=== PATIENT | male | born 1985 | race Caucasian/White ===

== ENCOUNTER 2020-08-02 09:52 | Inpatient (IN) | payer MEDICARE, MEDICAID ==
[~2020-08-02] VITALS: Ht 175.3 cm; Wt 172.1 kg
[~2020-08-02 09:52] MED LIST: AMOXICILLIN; PRILOSEC; PROTONIX
[2020-08-02] MEDS ORDERED: DILTIAZEM HCL 5MG/ML 5ML VIAL IV ONE (10:45)
[2020-08-02] MEDS ORDERED: FUROSEMIDE 40MG/4ML VIAL IVP ONE (11:00)
[2020-08-02] MEDS ORDERED: METOPROLOL TARTRATE 5MG/5ML VIAL IV ONE (11:15)
[2020-08-02 11:16] LABS: EOSINOPHILS % 1.1 % (0.0-5.0); HEMATOCRIT. 51.8 % (42.0-52.0); HEMOGLOBIN. 16.8 g/dL (14.0-18.0); LYMPHOCYTES % 17.6 % (20.0-50.0); MEAN CORPUSCULAR HEMOGLOBIN 27.5 pg (28.0-32.0); MEAN CORPUSCULAR VOLUME 84.5 fL (80.0-94.0); MEAN PLATELET VOLUME 8.1 fl (7.4-10.4); MONOCYTES % 12.3 % (2.0-8.0); PLATELET 169 x1000/uL (130-400); RED BLOOD CELL COUNT 6.13 mill/uL (4.7-6.1); RED CELL DISTRIBUTION WIDTH 17.4 % (11.6-14.6)
[2020-08-02 11:23] LABS: CHLORIDE 99 mEq/L (98-107)
[2020-08-02 11:24] LABS: INR 1.2; PROTHROMBIN TIME 12.5 sec (9.6-11.0)
[2020-08-02] MEDS ORDERED: GUAIFENESIN 200MG/10ML SUGAR FREE UDC PO PRN (12:30)
[2020-08-02] MEDS ORDERED: HYDROCODONE/ACETAMINOPHEN 5/325MG TABLET PO PRN (12:30)
[2020-08-02] MEDS ORDERED: DOCUSATE SODIUM 100MG CAPSULE PO PRN (12:30)
[2020-08-02] MEDS ORDERED: MORPHINE SULFATE 2 MG/ML CPJ (NOT FOR IM USE) IV PRN (12:30)
[2020-08-02] MEDS ORDERED: IPRATROPIUM/ALBUTEROL 0.5-3(2.5)MG/3ML NEB HHN PRN (12:30)
[2020-08-02] MEDS ORDERED: ONDANSETRON HCL 4MG/2ML INJ IV PRN (12:30)
[2020-08-02] MEDS ORDERED: MAGNESIUM/ALUMINUM HYDROXIDE/SIMETHICONE 30ML UDC PO PRN (12:30)
[2020-08-02] MEDS ORDERED: CLONIDINE 0.1MG TABLET PO PRN (12:30)
[2020-08-02] MEDS ORDERED: ACETAMINOPHEN 325MG TABLET PO PRN (12:30)
[2020-08-02] MEDS ORDERED: DIPHENHYDRAMINE 50MG/ML VIAL IV PRN (12:30)
[2020-08-02] MEDS ORDERED: LORAZEPAM 0.5MG TABLET PO PRN (12:30)
[2020-08-02 12:49] LABS: BG BASE EXCESS 3.8 mmol/L (-2.0-2.0); BG CARBOXYHEMOGLOBIN 0.8 % (0.5-1.5); BG DEOXYHEMOGLOBIN 4.5 % (0.0-5.0); BG FRACTION INSPIRED OXYGEN 36; BG HCO3 ACT 31.9 mmol/L (22.0-26.0); BG METHEMOGLOBIN 0.4 % (0.0-1.5); BG OXYGEN SATURATION 95.4 % (92.0-98.5); BG OXYHEMOGLOBIN 94.3 % (94.0-97.0); BG PCO2 60.2 mmHg (35.0-45.0); BG PH 7.342 (7.350-7.450); BG PO2 83.4 mmHg (75.0-100.0); BG SAMPLE SITE RIGHT RADIAL; BG TOTAL HEMOGLOBIN 18.3 g/dL (12.0-18.0); BG VENT MODE NASAL CANNULA
[2020-08-02 14:09] LABS: PHOSPHORUS 4.6 mg/dL (2.5-4.9)
[2020-08-02 14:31] VITALS: BP 98/54
[2020-08-02 15:27] VITALS: BP 98/54
[2020-08-02 15:36] VITALS: BP 107/67
[2020-08-02] MEDS ORDERED: CARV6.2548 PO (17:21)
[2020-08-02] MEDS ORDERED: FURO40TA5 PO (17:21)
[2020-08-02] MEDS ORDERED: DIGO250T2 PO (17:21)
[2020-08-02] MEDS ORDERED: SPIR50TA5 PO (17:21)
[2020-08-02] MEDS ORDERED: ALLO100T PO (17:21)
[2020-08-02] MEDS ORDERED: METO-396 PO (17:21)
[2020-08-02] MEDS ORDERED: APIX5TAB PO (17:21)
[2020-08-02] MEDS ORDERED: AMIODARONE (17:21)
[2020-08-02] MEDS ORDERED: MIDO5TAB4 PO (17:21)
[2020-08-02] MEDS ORDERED: SILD50TA52 (17:21)
[2020-08-02 18:01] VITALS: BP 93/61
[2020-08-02] MEDS: FUROSEMIDE 40MG/4ML VIAL IVP SCH (18:18)
[2020-08-02] MEDS: APIXABAN 5 MG TABLET PO SCH (18:18)
[2020-08-02 20:00] VITALS: BP 134/71
[2020-08-02] MEDS: METOPROLOL TARTRATE 25MG TABLET PO SCH (21:18)
[2020-08-02 22:14] VITALS: BP 128/49
[2020-08-03] VITALS (11 sets, daily range): BP systolic 105–145; BP diastolic 60–93
[2020-08-03] MEDS: FUROSEMIDE 40MG/4ML VIAL IVP SCH ×2 (06:24→17:53)
[2020-08-03] MEDS: METOPROLOL TARTRATE 25MG TABLET PO SCH ×2 (08:22→21:38)
[2020-08-03] MEDS: APIXABAN 5 MG TABLET PO SCH ×2 (08:22→17:52)
[2020-08-03] MEDS ORDERED: DIGOXIN 500MCG/2ML AMP IV SCH (09:45)
[2020-08-03 11:11] LABS: BASOPHILS % 0.7 % (0.0-2.0); EOSINOPHILS % 0.3 % (0.0-5.0); HEMATOCRIT. 51.6 % (42.0-52.0); HEMOGLOBIN. 16.3 g/dL (14.0-18.0); LYMPHOCYTES % 14.6 % (20.0-50.0); MEAN CORPUSCULAR HEMOGLOBIN 26.8 pg (28.0-32.0); MEAN CORPUSCULAR VOLUME 84.8 fL (80.0-94.0); MEAN PLATELET VOLUME 8.3 fl (7.4-10.4); MONOCYTES % 11.5 % (2.0-8.0); NEUTROPHILS % 72.9 % (40.0-76.0); PLATELET 188 x1000/uL (130-400); RED BLOOD CELL COUNT 6.08 mill/uL (4.7-6.1); RED CELL DISTRIBUTION WIDTH 17.7 % (11.6-14.6)
[2020-08-03 11:21] LABS: CHLORIDE 98 mEq/L (98-107)
[2020-08-03 11:28] LABS: LDL CHOLESTEROL 101 mg/dL (5-100)
[2020-08-03 11:29] LABS: CREATINE KINASE 142 IU/L (39-308)
[2020-08-03 11:30] LABS: HDL CHOLESTEROL 26 mg/dL (40-59); T4 FREE 1.26 ng/dL (0.76-1.46)
[2020-08-03] MEDS: DILTIAZEM HCL 30MG TABLET PO SCH ×2 (12:27→17:52)
[2020-08-03] MEDS: DIGOXIN 250MCG TABLET PO SCH (17:52)
[2020-08-03] MEDS ORDERED: VANCOMYCIN 1 G PREMIX 200 ML IV SCH (19:15)
[2020-08-03] MEDS ORDERED: FUROSEMIDE 20MG/2ML VIAL IVP NR (19:15)
[2020-08-03] MEDS ORDERED: PIPERACILLIN SODIUM/TAZOBACTAM 4.5 G in DEXT 5% WATER 100 ML IV NR (21:00)
[2020-08-03] MEDS ORDERED: VANCOMYCIN 2,000 MG in DEXT 5% WATER 500 ML IV NR (22:00)
[2020-08-04] VITALS (12 sets, daily range): BP systolic 90–162; BP diastolic 60–89
[2020-08-04] MEDS: DILTIAZEM HCL 30MG TABLET PO SCH ×4 (00:48→17:40)
[2020-08-04] MEDS: PIPERACILLIN/TAZOBACTAM 3.375G in DEXT 5% WATER 50ML IV SCH ×2 (05:11→10:56)
[2020-08-04 06:14] LABS: BASOPHILS % 0.7 % (0.0-2.0); EOSINOPHILS % 1.4 % (0.0-5.0); HEMATOCRIT. 52.8 % (42.0-52.0); HEMOGLOBIN. 16.6 g/dL (14.0-18.0); LYMPHOCYTES % 14.4 % (20.0-50.0); MEAN PLATELET VOLUME 8.2 fl (7.4-10.4); MONOCYTES % 11.9 % (2.0-8.0); NEUTROPHILS % 71.6 % (40.0-76.0); PLATELET 193 x1000/uL (130-400); RED BLOOD CELL COUNT 6.14 mill/uL (4.7-6.1); RED CELL DISTRIBUTION WIDTH 17.9 % (11.6-14.6)
[2020-08-04] MEDS: FUROSEMIDE 40MG/4ML VIAL IVP SCH ×2 (06:15→16:48)
[2020-08-04] MEDS: VANCOMYCIN 1250MG in DEXTROSE 5% WATER 250ML IV SCH ×2 (06:15→13:09)
[2020-08-04 07:32] LABS: CHLORIDE 98 mEq/L (98-107)
[2020-08-04] MEDS: APIXABAN 5 MG TABLET PO SCH ×2 (09:11→16:47)
[2020-08-04] MEDS: METOPROLOL TARTRATE 25MG TABLET PO SCH (09:12)
[2020-08-04] MEDS: NYSTATIN POWDER 15GM TOP SCH ×2 (15:33→16:40)
[2020-08-04] MEDS: DIGOXIN 250MCG TABLET PO SCH (17:40)
[2020-08-04] MEDS: CARVEDILOL 12.5MG TABLET PO SCH (20:22)
[2020-08-05] VITALS (8 sets, daily range): BP systolic 97–144; BP diastolic 56–92
[2020-08-05] MEDS: DILTIAZEM HCL 30MG TABLET PO SCH ×3 (00:39→12:00)
[2020-08-05 05:50] LABS: BASOPHILS % 0.8 % (0.0-2.0); EOSINOPHILS % 2.1 % (0.0-5.0); HEMATOCRIT. 51.2 % (42.0-52.0); HEMOGLOBIN. 16.2 g/dL (14.0-18.0); LYMPHOCYTES % 13.6 % (20.0-50.0); MEAN CORPUSCULAR VOLUME 85.1 fL (80.0-94.0); MEAN PLATELET VOLUME 8.4 fl (7.4-10.4); MONOCYTES % 13.2 % (2.0-8.0); NEUTROPHILS % 70.3 % (40.0-76.0); PLATELET 161 x1000/uL (130-400); RED BLOOD CELL COUNT 6.01 mill/uL (4.7-6.1); RED CELL DISTRIBUTION WIDTH 17.8 % (11.6-14.6)
[2020-08-05 05:56] LABS: CHLORIDE 98 mEq/L (98-107)
[2020-08-05] MEDS: FUROSEMIDE 40MG/4ML VIAL IVP SCH (06:31)
[2020-08-05] MEDS ORDERED: METOLAZONE 2.5MG TABLET PO SCH (07:30)
[2020-08-05] MEDS: CARVEDILOL 12.5MG TABLET PO SCH (08:10)
[2020-08-05] MEDS: NYSTATIN POWDER 15GM TOP SCH ×2 (08:10→12:21)
[2020-08-05] MEDS: APIXABAN 5 MG TABLET PO SCH (08:10)
== END 2020-08-05 12:40 | disposition home health service (06) | DRG 291 ==
LOC: ER 09:52 → EDBEDREQ 10:43 → ENRESERV 12:27 → 3WST 14:40
PROVIDERS: ADMIT Family Medicine Adult Medicine; ATTEND Family Medicine Adult Medicine
DX: I11.0 Hypertensive heart disease with heart failure (principal); J96.02 Acute respiratory failure with hypercapnia; I48.19 Other persistent atrial fibrillation; I48.92 Unspecified atrial flutter; Z68.43 Body mass index [BMI] 50.0-59.9, adult; I42.0 Dilated cardiomyopathy; E66.01 Morbid (severe) obesity due to excess calories; E78.5 Hyperlipidemia, unspecified; I25.10 Atherosclerotic heart disease of native coronary artery without angina pectoris; K21.9 Gastro-esophageal reflux disease without esophagitis; D64.9 Anemia, unspecified; I87.2 Venous insufficiency (chronic) (peripheral); N50.89 Other specified disorders of the male genital organs; I50.23 Acute on chronic systolic (congestive) heart failure; G47.33 Obstructive sleep apnea (adult) (pediatric); B36.9 Superficial mycosis, unspecified; M10.9 Gout, unspecified; I44.1 Atrioventricular block, second degree; I83.891 Varicose veins of right lower extremity with other complications; Z79.01 Long term (current) use of anticoagulants; Z95.810 Presence of automatic (implantable) cardiac defibrillator; Z79.899 Other long term (current) drug therapy; Z88.8 Allergy status to other drugs, medicaments and biological substances; Z82.49 Family history of ischemic heart disease and other diseases of the circulatory system; Z71.3 Dietary counseling and surveillance
CPT/HCPCS: 36415; 36600; 71045; 80048; 80053; 80061; 80202; 82040; 82375; 82550; 82805; 83735; 83880; 84100; 84134; 84439; 84443; 84484; 85025; 86850; 86900; 93005; 93306; 97162; 99291; J1160; J1940; J2543; J3370; J3490; J7060

== ENCOUNTER 2020-09-12 22:25 | Inpatient (IN) | payer MEDICARE, MEDICAID ==
[~2020-09-12] VITALS: Ht 167.6 cm; Wt 172.8 kg
[~2020-09-12 22:25] MED LIST changes: +ALLO100T PO; +AMIODARONE; +APIX5TAB PO; +CARV6.2548 PO; +DIGO250T2 PO; +FURO40TA5 PO; +METO-396 PO; +MIDO5TAB4 PO; +SILD50TA52; +SPIR50TA5 PO
[2020-09-12] MEDS ORDERED: FUROSEMIDE 100MG/10ML VIAL IVP ONE (23:30)
[2020-09-13 00:04] LABS: BASOPHILS % 0.8 % (0.0-2.0); HEMOGLOBIN. 15.7 g/dL (14.0-18.0); LYMPHOCYTES % 19.3 % (20.0-50.0); MEAN CORPUSCULAR HEMOGLOBIN 27.7 pg (28.0-32.0); MEAN CORPUSCULAR VOLUME 84.6 fL (80.0-94.0); MEAN PLATELET VOLUME 7.8 fl (7.4-10.4); MONOCYTES % 13.1 % (2.0-8.0); NEUTROPHILS % 65.8 % (40.0-76.0); PLATELET 278 x1000/uL (130-400); RED BLOOD CELL COUNT 5.67 mill/uL (4.7-6.1)
[2020-09-13 00:12] LABS: CHLORIDE 98 mEq/L (98-107)
[2020-09-13] MEDS ORDERED: ACETAMINOPHEN 325MG TABLET PO PRN (02:30)
[2020-09-13] MEDS ORDERED: CLONIDINE 0.1MG TABLET PO PRN (02:30)
[2020-09-13] MEDS ORDERED: ONDANSETRON HCL 4MG/2ML INJ IV PRN (02:30)
[2020-09-13] MEDS ORDERED: MAGNESIUM/ALUMINUM HYDROXIDE/SIMETHICONE 30ML UDC PO PRN (02:30)
[2020-09-13] MEDS ORDERED: DIPHENHYDRAMINE 50MG/ML VIAL IV PRN (02:30)
[2020-09-13] MEDS: ZOLPIDEM TARTRATE 5MG TABLET PO PRN (04:50)
[2020-09-13] MEDS: DILTIAZEM HCL 30MG TABLET PO SCH ×3 (06:25→18:00)
[2020-09-13] MEDS: SODIUM CHLORIDE 0.9% INJ 3ML FLUSH IVF SCH ×3 (06:25→22:00)
[2020-09-13] MEDS ORDERED: FUROSEMIDE 40MG TABLET PO SCH (09:00)
[2020-09-13] MEDS ORDERED: CARVEDILOL 12.5MG TABLET PO SCH (09:00)
[2020-09-13] MEDS: APIXABAN 5 MG TABLET PO SCH ×2 (09:49→19:23)
[2020-09-13 18:00] LABS: BASOPHILS % 0.8 % (0.0-2.0); EOSINOPHILS % 0.2 % (0.0-5.0); HEMATOCRIT. 47.3 % (42.0-52.0); HEMOGLOBIN. 15.3 g/dL (14.0-18.0); LYMPHOCYTES % 12.8 % (20.0-50.0); MEAN CORPUSCULAR HEMOGLOBIN 27.7 pg (28.0-32.0); MEAN CORPUSCULAR VOLUME 85.7 fL (80.0-94.0); MEAN PLATELET VOLUME 7.8 fl (7.4-10.4); MONOCYTES % 11.6 % (2.0-8.0); NEUTROPHILS % 74.6 % (40.0-76.0); PLATELET 256 x1000/uL (130-400); RED BLOOD CELL COUNT 5.52 mill/uL (4.7-6.1); RED CELL DISTRIBUTION WIDTH 18.9 % (11.6-14.6)
[2020-09-13 18:16] LABS: CHLORIDE 97 mEq/L (98-107)
[2020-09-13] MEDS: METOPROLOL TARTRATE 25MG TABLET PO SCH (21:00)
[2020-09-14] MEDS: FUROSEMIDE 40MG/4ML VIAL IVP SCH ×3 (02:09→21:23)
[2020-09-14] MEDS: MIDODRINE HCL 2.5MG TABLET PO SCH ×4 (02:10→17:55)
[2020-09-14 03:30] VITALS: BP 99/73
[2020-09-14] MEDS ORDERED: CARV12.545 PO (05:26)
[2020-09-14] MEDS ORDERED: POTA-9 PO (05:26)
[2020-09-14] MEDS ORDERED: FURO80TA3 PO (05:26)
[2020-09-14] MEDS: DILTIAZEM HCL 30MG TABLET PO SCH ×4 (06:00→17:27)
[2020-09-14] MEDS: SODIUM CHLORIDE 0.9% INJ 3ML FLUSH IVF SCH ×3 (06:01→21:25)
[2020-09-14 08:26] VITALS: BP 86/61
[2020-09-14] MEDS: METOPROLOL TARTRATE 25MG TABLET PO SCH ×2 (09:00→21:00)
[2020-09-14] MEDS: APIXABAN 5 MG TABLET PO SCH ×2 (10:01→17:55)
[2020-09-14 12:03] VITALS: BP 135/75
[2020-09-14 16:00] VITALS: BP 100/75
[2020-09-14 16:16] VITALS: BP 100/75
[2020-09-14 20:00] VITALS: BP 95/74
[2020-09-14] MEDS: ZOLPIDEM TARTRATE 5MG TABLET PO PRN (21:26)
[2020-09-15] VITALS: BP 113/55
[2020-09-15 04:00] VITALS: BP 131/86
[2020-09-15] MEDS: DILTIAZEM HCL 30MG TABLET PO SCH ×4 (06:56→18:00)
[2020-09-15 08:00] VITALS: BP 162/100
[2020-09-15] MEDS: FUROSEMIDE 40MG/4ML VIAL IVP SCH ×2 (10:28→21:59)
[2020-09-15] MEDS: METOPROLOL TARTRATE 25MG TABLET PO SCH (10:29)
[2020-09-15] MEDS: MIDODRINE HCL 2.5MG TABLET PO SCH ×3 (10:29→17:24)
[2020-09-15] MEDS: APIXABAN 5 MG TABLET PO SCH ×2 (10:30→17:24)
[2020-09-15 12:00] VITALS: BP 119/65
[2020-09-15 16:00] VITALS: BP 125/93
[2020-09-15 19:25] LABS: CREATINE KINASE 201 IU/L (39-308)
[2020-09-15 20:00] VITALS: BP 99/75
[2020-09-15 20:40] LABS: CLARITY URINE CLEAR (CLEAR); COLOR URINE DARK YELLOW (YELLOW); KETONES URINE NEGATIVE (NEGATIVE); LEUKOCYTE ESTERASE URINE NEGATIVE (NEGATIVE); NITRITE URINE NEGATIVE (NEGATIVE); OCCULT BLOOD URINE NEGATIVE (NEGATIVE); PROTEIN URINE NEGATIVE (NEGATIVE); SPECIFIC GRAVITY URINE 1.015 (1.005-1.030)
[2020-09-15] MEDS: CARVEDILOL 6.25 MG TABLET PO SCH (21:00)
[2020-09-15] MEDS: SODIUM CHLORIDE 0.9% INJ 3ML FLUSH IVF SCH (22:00)
[2020-09-15] MEDS: ZOLPIDEM TARTRATE 5MG TABLET PO PRN (22:00)
[2020-09-16] VITALS (9 sets, daily range): BP systolic 100–122; BP diastolic 55–95
[2020-09-16] MEDS: DILTIAZEM HCL 30MG TABLET PO SCH ×2 (01:42→06:00)
[2020-09-16] MEDS: FUROSEMIDE 40MG/4ML VIAL IVP SCH ×3 (06:00→22:14)
[2020-09-16] MEDS: SODIUM CHLORIDE 0.9% INJ 3ML FLUSH IVF SCH ×3 (06:01→22:16)
[2020-09-16 06:14] LABS: BASOPHILS % 0.7 % (0.0-2.0); EOSINOPHILS % 0.2 % (0.0-5.0); HEMATOCRIT. 51.6 % (42.0-52.0); HEMOGLOBIN. 16.2 g/dL (14.0-18.0); LYMPHOCYTES % 11.2 % (20.0-50.0); MEAN CORPUSCULAR HEMOGLOBIN 27.1 pg (28.0-32.0); MEAN CORPUSCULAR VOLUME 86.4 fL (80.0-94.0); MONOCYTES % 10.4 % (2.0-8.0); NEUTROPHILS % 77.5 % (40.0-76.0); PLATELET 302 x1000/uL (130-400); RED BLOOD CELL COUNT 5.97 mill/uL (4.7-6.1); RED CELL DISTRIBUTION WIDTH 19.4 % (11.6-14.6)
[2020-09-16 06:34] LABS: CHLORIDE 94 mEq/L (98-107)
[2020-09-16] MEDS ORDERED: METOLAZONE 2.5MG TABLET PO NR (07:00)
[2020-09-16] MEDS: APIXABAN 5 MG TABLET PO SCH ×2 (08:55→18:46)
[2020-09-16] MEDS: CARVEDILOL 6.25 MG TABLET PO SCH ×2 (08:55→22:16)
[2020-09-16] MEDS: MIDODRINE HCL 2.5MG TABLET PO SCH ×3 (08:55→18:46)
[2020-09-16] MEDS ORDERED: AMLODIPINE 2.5MG TABLET PO SCH (10:00)
[2020-09-16 10:51] LABS: BG CARBOXYHEMOGLOBIN 1.5 % (0.5-1.5); BG HCO3 ACT 32.1 mmol/L (22.0-26.0); BG METHEMOGLOBIN 0.3 % (0.0-1.5); BG OXYGEN SATURATION 94.9 % (92.0-98.5); BG OXYHEMOGLOBIN 93.2 % (94.0-97.0); BG PCO2 67.3 mmHg (35.0-45.0); BG PH 7.296 (7.350-7.450); BG PO2 84.4 mmHg (75.0-100.0); BG SAMPLE SITE RIGHT RADIAL; BG TOTAL HEMOGLOBIN 16.8 g/dL (12.0-18.0); BG VENT MODE NASAL CANNULA
[2020-09-16] MEDS ORDERED: LIDOCAINE HCL/PF 1% 2ML VIAL ONE (12:00)
[2020-09-16 17:54] LABS: BG BASE EXCESS 6.1 mmol/L (-2.0-2.0); BG DEOXYHEMOGLOBIN 2.9 % (0.0-5.0); BG HCO3 ACT 34.8 mmol/L (22.0-26.0); BG METHEMOGLOBIN 0.4 % (0.0-1.5); BG OXYHEMOGLOBIN 94.7 % (94.0-97.0); BG PCO2 66.4 mmHg (35.0-45.0); BG PH 7.337 (7.350-7.450); BG PO2 98.3 mmHg (75.0-100.0); BG SAMPLE SITE RIGHT RADIAL; BG TOTAL HEMOGLOBIN 16.9 g/dL (12.0-18.0); BG VENT MODE MASK - BIPAP
[2020-09-16] MEDS ORDERED: CARVEDILOL 3.125 MG TABLET PO NR (23:45)
[2020-09-17] VITALS (14 sets, daily range): BP systolic 80–119; BP diastolic 39–84
[2020-09-17] MEDS: FUROSEMIDE 40MG/4ML VIAL IVP SCH (06:15)
[2020-09-17] MEDS: SODIUM CHLORIDE 0.9% INJ 3ML FLUSH IVF SCH ×3 (06:15→22:57)
[2020-09-17] MEDS: APIXABAN 5 MG TABLET PO SCH ×2 (09:12→16:52)
[2020-09-17] MEDS: MIDODRINE HCL 2.5MG TABLET PO SCH ×3 (09:12→16:52)
[2020-09-17] MEDS: AMLODIPINE 2.5MG TABLET PO SCH (09:13)
[2020-09-17] MEDS: CARVEDILOL 6.25 MG TABLET PO SCH (09:13)
[2020-09-17 10:08] LABS: ANTI-NUCLEAR ANTIBODIES DIRECT Negative (Negative)
[2020-09-17 10:53] LABS: BG BASE EXCESS 11.4 mmol/L (-2.0-2.0); BG CARBOXYHEMOGLOBIN 1.3 % (0.5-1.5); BG DEOXYHEMOGLOBIN 5.4 % (0.0-5.0); BG FRACTION INSPIRED OXYGEN 40; BG HCO3 ACT 37.6 mmol/L (22.0-26.0); BG METHEMOGLOBIN 0.2 % (0.0-1.5); BG OXYGEN SATURATION 94.5 % (92.0-98.5); BG OXYHEMOGLOBIN 93.1 % (94.0-97.0); BG PCO2 54.3 mmHg (35.0-45.0); BG PH 7.458 (7.350-7.450); BG PO2 70.3 mmHg (75.0-100.0); BG SAMPLE SITE RIGHT RADIAL; BG VENT MODE NASAL CANNULA
[2020-09-17] MEDS: AMIODARONE HCL 200 MG TABLET PO SCH ×2 (12:51→20:31)
[2020-09-17] MEDS: POTASSIUM CHLORIDE 20MEQ TABLET SR PO SCH (12:51)
[2020-09-17] MEDS: FUROSEMIDE 100MG/10ML VIAL IVP SCH ×2 (13:33→22:00)
[2020-09-17] MEDS: CARVEDILOL 3.125 MG TABLET PO SCH (20:32)
[2020-09-18] VITALS (12 sets, daily range): BP systolic 93–154; BP diastolic 51–89
[2020-09-18] MEDS: ZOLPIDEM TARTRATE 5MG TABLET PO PRN (00:35)
[2020-09-18] MEDS: SODIUM CHLORIDE 0.9% INJ 3ML FLUSH IVF SCH ×3 (06:42→21:40)
[2020-09-18] MEDS: FUROSEMIDE 100MG/10ML VIAL IVP SCH ×3 (06:43→21:40)
[2020-09-18 07:50] LABS: BASOPHILS % 0.4 % (0.0-2.0); EOSINOPHILS % 0.5 % (0.0-5.0); HEMATOCRIT. 44.8 % (42.0-52.0); HEMOGLOBIN. 14.5 g/dL (14.0-18.0); LYMPHOCYTES % 11.6 % (20.0-50.0); MEAN CORPUSCULAR HEMOGLOBIN 27.4 pg (28.0-32.0); MEAN CORPUSCULAR VOLUME 84.8 fL (80.0-94.0); MONOCYTES % 10.8 % (2.0-8.0); NEUTROPHILS % 76.7 % (40.0-76.0); PLATELET 198 x1000/uL (130-400); RED BLOOD CELL COUNT 5.28 mill/uL (4.7-6.1); RED CELL DISTRIBUTION WIDTH 18.9 % (11.6-14.6)
[2020-09-18] MEDS: AMIODARONE HCL 200 MG TABLET PO SCH ×2 (08:30→20:21)
[2020-09-18] MEDS: CARVEDILOL 3.125 MG TABLET PO SCH ×2 (08:30→20:21)
[2020-09-18] MEDS: MIDODRINE HCL 2.5MG TABLET PO SCH ×3 (08:30→17:36)
[2020-09-18] MEDS: APIXABAN 5 MG TABLET PO SCH ×2 (08:30→17:36)
[2020-09-18] MEDS: POTASSIUM CHLORIDE 20MEQ TABLET SR PO SCH (08:30)
[2020-09-18] MEDS: AMLODIPINE 2.5MG TABLET PO SCH (08:31)
[2020-09-19] VITALS (15 sets, daily range): BP systolic 91–134; BP diastolic 46–94
[2020-09-19] MEDS: SODIUM CHLORIDE 0.9% INJ 3ML FLUSH IVF SCH ×3 (05:33→21:34)
[2020-09-19] MEDS: FUROSEMIDE 100MG/10ML VIAL IVP SCH ×3 (05:33→21:33)
[2020-09-19] MEDS: POTASSIUM CHLORIDE 20MEQ TABLET SR PO SCH (08:41)
[2020-09-19] MEDS: MIDODRINE HCL 2.5MG TABLET PO SCH ×3 (08:41→16:48)
[2020-09-19] MEDS: SPIRONOLACTONE 50MG TABLET PO SCH (08:42)
[2020-09-19] MEDS: CARVEDILOL 3.125 MG TABLET PO SCH ×2 (08:42→20:10)
[2020-09-19] MEDS: APIXABAN 5 MG TABLET PO SCH ×2 (08:42→16:48)
[2020-09-19] MEDS: AMIODARONE HCL 200 MG TABLET PO SCH ×2 (08:42→23:00)
[2020-09-19] MEDS: ALLOPURINOL 100 MG TABLET PO SCH (08:42)
[2020-09-19] MEDS: AMLODIPINE 2.5MG TABLET PO SCH (08:43)
[2020-09-19 14:41] LABS: BG BASE EXCESS 10.5 mmol/L (-2.0-2.0); BG CARBOXYHEMOGLOBIN 1.9 % (0.5-1.5); BG DEOXYHEMOGLOBIN 15.1 % (0.0-5.0); BG FRACTION INSPIRED OXYGEN 21; BG HCO3 ACT 37.6 mmol/L (22.0-26.0); BG METHEMOGLOBIN 0.4 % (0.0-1.5); BG OXYGEN SATURATION 84.5 % (92.0-98.5); BG OXYHEMOGLOBIN 82.6 % (94.0-97.0); BG PCO2 58.7 mmHg (35.0-45.0); BG PH 7.424 (7.350-7.450); BG PO2 49.5 mmHg (75.0-100.0); BG SAMPLE SITE RIGHT RADIAL; BG VENT MODE ROOM AIR
[2020-09-19] MEDS ORDERED: IPRATROPIUM/ALBUTEROL 0.5-3(2.5)MG/3ML NEB HHN NR (23:30)
[2020-09-20] VITALS (12 sets, daily range): BP systolic 92–120; BP diastolic 24–77
[2020-09-20] MEDS: AMIODARONE HCL 200 MG TABLET PO SCH ×3 (00:02→22:00)
[2020-09-20] MEDS: PROMETHAZINE/DEXTROMETHORPHAN 6.25-15MG/5ML BOTTLE 120ML PO PRN (00:03)
[2020-09-20] MEDS: SODIUM CHLORIDE 0.9% INJ 3ML FLUSH IVF SCH ×3 (06:00→22:00)
[2020-09-20] MEDS ORDERED: METOLAZONE 2.5MG TABLET PO NR (06:30)
[2020-09-20 07:00] LABS: HEMATOCRIT. 46.6 % (42.0-52.0); HEMOGLOBIN. 14.8 g/dL (14.0-18.0); MEAN CORPUSCULAR HEMOGLOBIN 27.1 pg (28.0-32.0); MEAN CORPUSCULAR VOLUME 85.1 fL (80.0-94.0); MEAN PLATELET VOLUME 8.6 fl (7.4-10.4); PLATELET 231 x1000/uL (130-400); RED BLOOD CELL COUNT 5.48 mill/uL (4.7-6.1)
[2020-09-20] MEDS: FUROSEMIDE 100MG/10ML VIAL IVP SCH ×3 (08:36→22:00)
[2020-09-20] MEDS: MIDODRINE HCL 2.5MG TABLET PO SCH ×3 (08:37→16:33)
[2020-09-20] MEDS: POTASSIUM CHLORIDE 20MEQ TABLET SR PO SCH ×2 (08:37→09:00)
[2020-09-20] MEDS: APIXABAN 5 MG TABLET PO SCH ×2 (08:38→16:33)
[2020-09-20] MEDS: ALLOPURINOL 100 MG TABLET PO SCH (08:38)
[2020-09-20] MEDS: AMLODIPINE 2.5MG TABLET PO SCH (08:38)
[2020-09-20] MEDS: CARVEDILOL 3.125 MG TABLET PO SCH ×2 (08:38→21:00)
[2020-09-20] MEDS: SPIRONOLACTONE 50MG TABLET PO SCH (08:39)
[2020-09-20] MEDS: ACETAMINOPHEN 325MG TABLET PO PRN (12:17)
[2020-09-20] MEDS ORDERED: METOLAZONE 2.5MG TABLET PO SCH (12:45)
[2020-09-20 14:48] LABS: NUCLEATED RED BLOOD CELLS 1 /100 WBC; PLATELET ESTIMATE NORMAL
[2020-09-20] MEDS ORDERED: ALBUTEROL (0.083%) 2.5MG/3ML NEB HHN PRN (19:45)
[2020-09-20] MEDS: IPRATROPIUM/ALBUTEROL 0.5-3(2.5)MG/3ML NEB HHN SCH (21:18)
[2020-09-21] VITALS (12 sets, daily range): BP systolic 91–114; BP diastolic 35–69
[2020-09-21] MEDS: IPRATROPIUM/ALBUTEROL 0.5-3(2.5)MG/3ML NEB HHN SCH ×5 (00:53→20:13)
[2020-09-21] MEDS: FUROSEMIDE 100MG/10ML VIAL IVP SCH ×2 (06:04→17:31)
[2020-09-21] MEDS: SODIUM CHLORIDE 0.9% INJ 3ML FLUSH IVF SCH ×3 (06:04→21:35)
[2020-09-21 07:04] LABS: HEMATOCRIT. 46.7 % (42.0-52.0); HEMOGLOBIN. 14.6 g/dL (14.0-18.0); MEAN CORPUSCULAR HEMOGLOBIN 27.2 pg (28.0-32.0); MEAN CORPUSCULAR VOLUME 86.9 fL (80.0-94.0); MEAN PLATELET VOLUME 8.1 fl (7.4-10.4); PLATELET 170 x1000/uL (130-400); RED BLOOD CELL COUNT 5.37 mill/uL (4.7-6.1); RED CELL DISTRIBUTION WIDTH 19.5 % (11.6-14.6)
[2020-09-21] MEDS: POTASSIUM CHLORIDE 10MEQ TABLET SR PO SCH (08:23)
[2020-09-21] MEDS: APIXABAN 5 MG TABLET PO SCH ×2 (08:23→17:31)
[2020-09-21] MEDS: AMIODARONE HCL 200 MG TABLET PO SCH ×2 (08:24→21:02)
[2020-09-21] MEDS: CARVEDILOL 3.125 MG TABLET PO SCH ×2 (08:24→21:03)
[2020-09-21] MEDS: MIDODRINE HCL 2.5MG TABLET PO SCH (08:24)
[2020-09-21] MEDS: SPIRONOLACTONE 50MG TABLET PO SCH (08:24)
[2020-09-21] MEDS: ALLOPURINOL 100 MG TABLET PO SCH (08:24)
[2020-09-21] MEDS: AMLODIPINE 2.5MG TABLET PO SCH (08:25)
[2020-09-21] MEDS ORDERED: DIGOXIN 500MCG/2ML AMP IV SCH (08:30)
[2020-09-21] MEDS ORDERED: MIDODRINE HCL 2.5MG TABLET PO SCH (08:30)
[2020-09-21] MEDS: MIDODRINE HCL 5MG TABLET PO SCH ×3 (08:40→17:32)
[2020-09-21] MEDS: ACETAMINOPHEN 325MG TABLET PO PRN (08:51)
[2020-09-21] MEDS ORDERED: METHYL SALICYLATE/MENTHOL CREAM 85GM TOP PRN (14:30)
[2020-09-21] MEDS: PROMETHAZINE/DEXTROMETHORPHAN 6.25-15MG/5ML BOTTLE 120ML PO PRN (15:25)
[2020-09-21 18:47] LABS: PLATELET ESTIMATE NORMAL
[2020-09-22] VITALS (12 sets, daily range): BP systolic 93–131; BP diastolic 43–90
[2020-09-22] MEDS: IPRATROPIUM/ALBUTEROL 0.5-3(2.5)MG/3ML NEB HHN SCH ×6 (00:37→21:09)
[2020-09-22] MEDS: SODIUM CHLORIDE 0.9% INJ 3ML FLUSH IVF SCH ×3 (05:37→22:00)
[2020-09-22] MEDS: FUROSEMIDE 100MG/10ML VIAL IVP SCH ×2 (05:59→17:32)
[2020-09-22] MEDS: CARVEDILOL 3.125 MG TABLET PO SCH ×2 (09:00→20:32)
[2020-09-22] MEDS: SPIRONOLACTONE 50MG TABLET PO SCH (09:00)
[2020-09-22] MEDS: AMLODIPINE 2.5MG TABLET PO SCH (09:00)
[2020-09-22] MEDS: POTASSIUM CHLORIDE 10MEQ TABLET SR PO SCH (09:17)
[2020-09-22] MEDS: ALLOPURINOL 100 MG TABLET PO SCH (09:17)
[2020-09-22] MEDS: AMIODARONE HCL 200 MG TABLET PO SCH ×2 (09:18→20:32)
[2020-09-22] MEDS: MIDODRINE HCL 5MG TABLET PO SCH ×3 (09:18→16:31)
[2020-09-22] MEDS: APIXABAN 5 MG TABLET PO SCH ×2 (09:18→16:31)
[2020-09-22] MEDS ORDERED: DIGOXIN 500MCG/2ML AMP IV NR (11:30)
[2020-09-22] MEDS: DIGOXIN 500MCG/2ML AMP IV SCH (17:31)
[2020-09-23] VITALS (12 sets, daily range): BP systolic 92–115; BP diastolic 51–80
[2020-09-23] MEDS: IPRATROPIUM/ALBUTEROL 0.5-3(2.5)MG/3ML NEB HHN SCH ×6 (00:52→20:00)
[2020-09-23] MEDS: FUROSEMIDE 100MG/10ML VIAL IVP SCH ×2 (06:23→17:38)
[2020-09-23] MEDS: SODIUM CHLORIDE 0.9% INJ 3ML FLUSH IVF SCH ×3 (06:23→21:09)
[2020-09-23] MEDS: CARVEDILOL 3.125 MG TABLET PO SCH ×2 (08:54→20:48)
[2020-09-23] MEDS: ALLOPURINOL 100 MG TABLET PO SCH (08:54)
[2020-09-23] MEDS: APIXABAN 5 MG TABLET PO SCH ×2 (08:54→17:38)
[2020-09-23] MEDS: POTASSIUM CHLORIDE 10MEQ TABLET SR PO SCH (08:55)
[2020-09-23] MEDS: SPIRONOLACTONE 50MG TABLET PO SCH (08:55)
[2020-09-23] MEDS: AMIODARONE HCL 200 MG TABLET PO SCH ×2 (08:55→20:47)
[2020-09-23] MEDS: MIDODRINE HCL 5MG TABLET PO SCH ×3 (08:55→17:38)
[2020-09-23] MEDS: DIGOXIN 500MCG/2ML AMP IV SCH (17:38)
[2020-09-24] VITALS (10 sets, daily range): BP systolic 91–134; BP diastolic 41–88
[2020-09-24] MEDS: IPRATROPIUM/ALBUTEROL 0.5-3(2.5)MG/3ML NEB HHN SCH ×5 (04:00→16:00)
[2020-09-24] MEDS: SODIUM CHLORIDE 0.9% INJ 3ML FLUSH IVF SCH ×2 (05:08→13:17)
[2020-09-24] MEDS: FUROSEMIDE 100MG/10ML VIAL IVP SCH ×3 (05:36→17:17)
[2020-09-24] MEDS: POTASSIUM CHLORIDE 10MEQ TABLET SR PO SCH (08:50)
[2020-09-24] MEDS: CARVEDILOL 3.125 MG TABLET PO SCH (08:50)
[2020-09-24] MEDS: AMIODARONE HCL 200 MG TABLET PO SCH (08:51)
[2020-09-24] MEDS: APIXABAN 5 MG TABLET PO SCH ×2 (08:51→16:56)
[2020-09-24] MEDS: ALLOPURINOL 100 MG TABLET PO SCH (08:51)
[2020-09-24] MEDS: MIDODRINE HCL 5MG TABLET PO SCH ×3 (08:51→17:08)
[2020-09-24] MEDS ORDERED: SPIRONOLACTONE 25MG TABLET PO SCH (09:00)
[2020-09-24 12:39] LABS: BASOPHILS % 0.4 % (0.0-2.0); EOSINOPHILS % 0.8 % (0.0-5.0); HEMATOCRIT. 42.8 % (42.0-52.0); LYMPHOCYTES % 8.3 % (20.0-50.0); MEAN CORPUSCULAR HEMOGLOBIN 27.9 pg (28.0-32.0); MEAN CORPUSCULAR VOLUME 85.3 fL (80.0-94.0); MEAN PLATELET VOLUME 8.1 fl (7.4-10.4); MONOCYTES % 10.5 % (2.0-8.0); PLATELET 211 x1000/uL (130-400); RED BLOOD CELL COUNT 5.01 mill/uL (4.7-6.1); RED CELL DISTRIBUTION WIDTH 19.2 % (11.6-14.6)
[2020-09-24 12:45] LABS: CHLORIDE 85 mEq/L (98-107)
== END 2020-09-24 18:22 | disposition home health service (06) | DRG 291 ==
LOC: ER 22:25 → MICUSO 09-13 00:32 → EDBEDREQ 09-13 00:37 → EDBEDREQTM 09-13 00:37 → EDBEDREQDT 09-13 00:37 → 7EST 09-13 16:20 → MICUSO 09-13 23:18 → 6WST 09-13 23:23 → 3WST 09-16 21:08
PROVIDERS: ADMIT Internal Medicine; ATTEND Internal Medicine
PROC: 5A09457 Assistance with Respiratory Ventilation, 24-96 Consecutive Hours, Continuous Positive Airway Pressure (ICD-10-PCS; principal; 2020-09-16)
PROC: 5A09457 Assistance with Respiratory Ventilation, 24-96 Consecutive Hours, Continuous Positive Airway Pressure (ICD-10-PCS; 2020-09-20)
PROC: 5A09357 Assistance with Respiratory Ventilation, Less than 24 Consecutive Hours, Continuous Positive Airway Pressure (ICD-10-PCS; 2020-09-22)
PROC: 5A09357 Assistance with Respiratory Ventilation, Less than 24 Consecutive Hours, Continuous Positive Airway Pressure (ICD-10-PCS; 2020-09-23)
PROC: 5A09357 Assistance with Respiratory Ventilation, Less than 24 Consecutive Hours, Continuous Positive Airway Pressure (ICD-10-PCS; 2020-09-24)
DX: I13.0 Hypertensive heart and chronic kidney disease with heart failure and stage 1 through stage 4 chronic kidney disease, or unspecified chronic kidney disease (principal); I50.23 Acute on chronic systolic (congestive) heart failure; J96.01 Acute respiratory failure with hypoxia; J96.02 Acute respiratory failure with hypercapnia; N17.9 Acute kidney failure, unspecified; I48.19 Other persistent atrial fibrillation; E66.2 Morbid (severe) obesity with alveolar hypoventilation; I47.2 Ventricular tachycardia; E46 Unspecified protein-calorie malnutrition; Z68.44 Body mass index [BMI] 60.0-69.9, adult; I87.2 Venous insufficiency (chronic) (peripheral); I45.10 Unspecified right bundle-branch block; I42.0 Dilated cardiomyopathy; N18.9 Chronic kidney disease, unspecified; Z20.822 Contact with and (suspected) exposure to COVID-19; E87.6 Hypokalemia; I25.10 Atherosclerotic heart disease of native coronary artery without angina pectoris; I34.0 Nonrheumatic mitral (valve) insufficiency; Z79.01 Long term (current) use of anticoagulants; Z83.3 Family history of diabetes mellitus; Z95.810 Presence of automatic (implantable) cardiac defibrillator; Z88.6 Allergy status to analgesic agent; Z79.84 Long term (current) use of oral hypoglycemic drugs; Z79.899 Other long term (current) drug therapy; I83.891 Varicose veins of right lower extremity with other complications
CPT/HCPCS: 36415; 36600; 71045; 76770; 80048; 80053; 81003; 82375; 82550; 82805; 83735; 83880; 84443; 84484; 85025; 86038; 86160; 87426; 93005; 93306; 93970; 94660; 97162; 97166; 97530; 99285; A6261; J1160; J1940; J3490

== ENCOUNTER 2020-10-01 09:28 | Inpatient (IN) | payer MEDICARE, MEDICAID ==
[~2020-10-01] VITALS: Ht 177.8 cm; Wt 143.3 kg
[~2020-10-01 09:28] MED LIST changes: -AMIODARONE; -AMOXICILLIN; +CARV12.545 PO; -CARV6.2548 PO; -DIGO250T2 PO; -FURO40TA5 PO; +FURO80TA3 PO; +POTA-9 PO; -PRILOSEC; -PROTONIX; -SILD50TA52
[2020-10-01 11:40] LABS: BASOPHILS % 0.4 % (0.0-2.0); EOSINOPHILS % 0.4 % (0.0-5.0); HEMATOCRIT. 43.7 % (42.0-52.0); HEMOGLOBIN. 13.8 g/dL (14.0-18.0); LYMPHOCYTES % 7.4 % (20.0-50.0); MEAN CORPUSCULAR HEMOGLOBIN 27.3 pg (28.0-32.0); MEAN CORPUSCULAR VOLUME 86.7 fL (80.0-94.0); MEAN PLATELET VOLUME 7.9 fl (7.4-10.4); MONOCYTES % 7.2 % (2.0-8.0); NEUTROPHILS % 84.6 % (40.0-76.0); PLATELET 197 x1000/uL (130-400); RED BLOOD CELL COUNT 5.05 mill/uL (4.7-6.1); RED CELL DISTRIBUTION WIDTH 19.5 % (11.6-14.6)
[2020-10-01 11:43] LABS: CHLORIDE 89 mEq/L (98-107)
[2020-10-01 12:49] LABS: BG BASE EXCESS 11.4 mmol/L (-2.0-2.0); BG DEOXYHEMOGLOBIN 1.7 % (0.0-5.0); BG FRACTION INSPIRED OXYGEN 36; BG HCO3 ACT 37.3 mmol/L (22.0-26.0); BG METHEMOGLOBIN 0.6 % (0.0-1.5); BG OXYGEN SATURATION 98.3 % (92.0-98.5); BG OXYHEMOGLOBIN 95.7 % (94.0-97.0); BG PCO2 53.2 mmHg (35.0-45.0); BG PH 7.464 (7.350-7.450); BG PO2 120.3 mmHg (75.0-100.0); BG SAMPLE SITE RIGHT RADIAL; BG TOTAL HEMOGLOBIN 14.9 g/dL (12.0-18.0); BG VENT MODE NASAL CANNULA
[2020-10-01] MEDS ORDERED: ACETAZOLAMIDE SODIUM 500MG/VIAL IV NR (14:00)
[2020-10-01] MEDS ORDERED: DOBUTAMINE 250MG PREMIX 250 ML IV SCH (14:00)
[2020-10-01] MEDS: FUROSEMIDE 100MG/10ML VIAL IVP SCH ×2 (14:05→22:14)
[2020-10-01] MEDS ORDERED: MAGNESIUM/ALUMINUM HYDROXIDE/SIMETHICONE 30ML UDC PO PRN (14:15)
[2020-10-01] MEDS ORDERED: DOCUSATE SODIUM 100MG CAPSULE PO PRN (14:15)
[2020-10-01] MEDS ORDERED: ONDANSETRON HCL 4MG/2ML INJ IV PRN (14:15)
[2020-10-01] MEDS ORDERED: NITROGLYCERIN 0.4MG TABLET SL SL PRN (14:15)
[2020-10-01] MEDS ORDERED: IPRATROPIUM/ALBUTEROL 0.5-3(2.5)MG/3ML NEB NEB PRN (14:15)
[2020-10-01] MEDS ORDERED: KETOROLAC 15MG/ML VIAL IV PRN (14:15)
[2020-10-01] MEDS ORDERED: ACETAMINOPHEN 325MG TABLET PO PRN ×2 (14:15)
[2020-10-01] MEDS ORDERED: GUAIFENESIN 200MG/10ML SUGAR FREE UDC PO PRN (14:15)
[2020-10-01] MEDS ORDERED: TRAMADOL 50MG TABLET PO PRN (14:15)
[2020-10-01] MEDS ORDERED: CLONIDINE 0.1MG TABLET PO PRN (14:15)
[2020-10-01] MEDS: DOBUTAMINE 250MG PREMIX 250 ML IV SCH ×2 (14:18→17:18)
[2020-10-01 14:42] LABS: TOTAL IRON BINDING CAPACITY 330 ug/dL (250-450)
[2020-10-01 14:48] LABS: ETHANOL BLOOD < 10 mg/dL
[2020-10-01 15:04] LABS: FOLIC ACID (FOLATE) SERUM 14.6 ng/mL (>5.38)
[2020-10-01 16:33] VITALS: BP 120/76
[2020-10-01 16:50] VITALS: BP 110/69
[2020-10-01 18:00] VITALS: BP 112/63
[2020-10-01] MEDS: APIXABAN 5 MG TABLET PO SCH (18:46)
[2020-10-01] MEDS: POTASSIUM CHLORIDE 20MEQ TABLET SR PO SCH (18:46)
[2020-10-01 20:00] VITALS: BP 98/53
[2020-10-01] MEDS ORDERED: ZOLPIDEM TARTRATE 5MG TABLET PO PRN (21:00)
[2020-10-01 22:00] VITALS: BP 100/66
[2020-10-01] MEDS: ASCORBIC ACID 500 MG TABLET PO SCH (22:13)
[2020-10-01] MEDS: FAMOTIDINE 20MG TABLET PO SCH (22:13)
[2020-10-01] MEDS: CARVEDILOL 3.125 MG TABLET PO SCH (22:14)
[2020-10-01 23:59] VITALS: BP 121/64
[2020-10-02] VITALS (11 sets, daily range): BP systolic 101–150; BP diastolic 51–95
[2020-10-02 00:44] LABS: CREATINE KINASE 89 IU/L (39-308)
[2020-10-02 00:45] LABS: CREATINE KINASE MB FRACTION < 1.0 ng/mL (0.5-3.6)
[2020-10-02] MEDS: DOBUTAMINE 250MG PREMIX 250 ML IV SCH ×5 (01:01→10:19)
[2020-10-02] MEDS: FUROSEMIDE 100MG/10ML VIAL IVP SCH ×3 (05:57→21:32)
[2020-10-02] MEDS ORDERED: METOLAZONE 2.5MG TABLET PO NR (06:30)
[2020-10-02 06:47] LABS: BASOPHILS % 0.5 % (0.0-2.0); EOSINOPHILS % 0.6 % (0.0-5.0); HEMATOCRIT. 40.4 % (42.0-52.0); HEMOGLOBIN. 12.8 g/dL (14.0-18.0); LYMPHOCYTES % 10.8 % (20.0-50.0); MEAN CORPUSCULAR HEMOGLOBIN 27.6 pg (28.0-32.0); MEAN CORPUSCULAR VOLUME 87.3 fL (80.0-94.0); MEAN PLATELET VOLUME 8.1 fl (7.4-10.4); MONOCYTES % 9.1 % (2.0-8.0); PLATELET 192 x1000/uL (130-400); RED BLOOD CELL COUNT 4.63 mill/uL (4.7-6.1); RED CELL DISTRIBUTION WIDTH 19.7 % (11.6-14.6)
[2020-10-02] MEDS: FAMOTIDINE 20MG TABLET PO SCH ×2 (09:00→20:45)
[2020-10-02] MEDS: CARVEDILOL 3.125 MG TABLET PO SCH (09:02)
[2020-10-02] MEDS: ASCORBIC ACID 500 MG TABLET PO SCH ×2 (09:02→20:45)
[2020-10-02] MEDS: ZINC SULFATE 220 MG ( 50 ) CAPSULE PO SCH (09:02)
[2020-10-02] MEDS: POTASSIUM CHLORIDE 20MEQ TABLET SR PO SCH ×2 (09:02→17:00)
[2020-10-02] MEDS: CHOLECALCIFEROL (D3) 1000 UNIT TABLET PO SCH (09:02)
[2020-10-02] MEDS: APIXABAN 5 MG TABLET PO SCH ×2 (09:02→18:35)
[2020-10-02 09:51] LABS: CHLORIDE 89 mEq/L (98-107)
[2020-10-02 10:00] LABS: CREATINE KINASE 77 IU/L (39-308); PHOSPHORUS 3.5 mg/dL (2.5-4.9)
[2020-10-02 10:02] LABS: CREATINE KINASE MB FRACTION 1.4 ng/mL (0.5-3.6)
[2020-10-02] MEDS ORDERED: AMIODARONE HCL 900 MG in DEXT 5% WATER 482 ML IV PRN (11:45)
[2020-10-02] MEDS ORDERED: AMIODARONE HCL 150 MG in DEXT 5% WATER 100 ML IV NR (12:00)
[2020-10-02] MEDS ORDERED: KCL 20MEQ/100ML PREMIX 100 ML IV NR ×2 (13:00→23:00)
[2020-10-02] MEDS ORDERED: LIDOCAINE HCL 1% 20ML VIAL (Pyxis) INJ ONE (13:40)
[2020-10-02] MEDS ORDERED: NALOXONE HCL 0.4MG/ML VIAL IV PRN (14:30)
[2020-10-02] MEDS: AMIODARONE HCL 200 MG TABLET PO SCH ×2 (15:39→20:49)
[2020-10-02] MEDS: CARVEDILOL 6.25 MG TABLET PO SCH (20:49)
[2020-10-03] VITALS (12 sets, daily range): BP systolic 91–122; BP diastolic 38–86
[2020-10-03] MEDS: IPRATROPIUM/ALBUTEROL 0.5-3(2.5)MG/3ML NEB HHN SCH ×2 (00:35→23:59)
[2020-10-03] MEDS: FUROSEMIDE 100MG/10ML VIAL IVP SCH ×3 (06:36→21:27)
[2020-10-03 06:52] LABS: BASOPHILS % 0.4 % (0.0-2.0); EOSINOPHILS % 0.6 % (0.0-5.0); HEMATOCRIT. 38.9 % (42.0-52.0); HEMOGLOBIN. 12.5 g/dL (14.0-18.0); LYMPHOCYTES % 10.8 % (20.0-50.0); MEAN CORPUSCULAR HEMOGLOBIN 27.8 pg (28.0-32.0); MEAN CORPUSCULAR VOLUME 86.2 fL (80.0-94.0); MEAN PLATELET VOLUME 7.9 fl (7.4-10.4); MONOCYTES % 8.7 % (2.0-8.0); NEUTROPHILS % 79.5 % (40.0-76.0); PLATELET 242 x1000/uL (130-400); RED BLOOD CELL COUNT 4.51 mill/uL (4.7-6.1); RED CELL DISTRIBUTION WIDTH 19.5 % (11.6-14.6)
[2020-10-03 07:23] LABS: CHLORIDE 88 mEq/L (98-107)
[2020-10-03] MEDS: APIXABAN 5 MG TABLET PO SCH ×2 (08:25→16:49)
[2020-10-03] MEDS: ZINC SULFATE 220 MG ( 50 ) CAPSULE PO SCH (08:25)
[2020-10-03] MEDS: POTASSIUM CHLORIDE 20MEQ TABLET SR PO SCH ×2 (08:25→16:49)
[2020-10-03] MEDS: AMIODARONE HCL 200 MG TABLET PO SCH ×2 (08:26→21:27)
[2020-10-03] MEDS: FAMOTIDINE 20MG TABLET PO SCH ×2 (08:26→21:27)
[2020-10-03] MEDS: CHOLECALCIFEROL (D3) 1000 UNIT TABLET PO SCH (08:26)
[2020-10-03] MEDS: CARVEDILOL 6.25 MG TABLET PO SCH ×2 (08:26→21:43)
[2020-10-03] MEDS: ASCORBIC ACID 500 MG TABLET PO SCH ×2 (08:26→21:27)
[2020-10-03] MEDS ORDERED: KCL 20MEQ/100ML PREMIX 100 ML IV ONE (09:00)
[2020-10-03] MEDS: SPIRONOLACTONE 25MG TABLET PO SCH (15:00)
[2020-10-04] VITALS (12 sets, daily range): BP systolic 90–135; BP diastolic 41–89
[2020-10-04 05:39] LABS: BASOPHILS % 0.6 % (0.0-2.0); EOSINOPHILS % 0.8 % (0.0-5.0); HEMATOCRIT. 41.6 % (42.0-52.0); HEMOGLOBIN. 13.3 g/dL (14.0-18.0); LYMPHOCYTES % 12.6 % (20.0-50.0); MEAN CORPUSCULAR HEMOGLOBIN 27.9 pg (28.0-32.0); MEAN CORPUSCULAR VOLUME 87.2 fL (80.0-94.0); MONOCYTES % 10.3 % (2.0-8.0); NEUTROPHILS % 75.7 % (40.0-76.0); PLATELET 240 x1000/uL (130-400); RED BLOOD CELL COUNT 4.77 mill/uL (4.7-6.1); RED CELL DISTRIBUTION WIDTH 19.4 % (11.6-14.6)
[2020-10-04] MEDS: FUROSEMIDE 100MG/10ML VIAL IVP SCH ×3 (06:24→22:03)
[2020-10-04 06:43] LABS: CHLORIDE 91 mEq/L (98-107)
[2020-10-04] MEDS: IPRATROPIUM/ALBUTEROL 0.5-3(2.5)MG/3ML NEB HHN SCH ×2 (08:00→14:00)
[2020-10-04] MEDS: FAMOTIDINE 20MG TABLET PO SCH ×2 (08:38→22:02)
[2020-10-04] MEDS: APIXABAN 5 MG TABLET PO SCH ×2 (08:38→16:21)
[2020-10-04] MEDS: ASCORBIC ACID 500 MG TABLET PO SCH ×2 (08:39→22:02)
[2020-10-04] MEDS: CHOLECALCIFEROL (D3) 1000 UNIT TABLET PO SCH (08:39)
[2020-10-04] MEDS: ZINC SULFATE 220 MG ( 50 ) CAPSULE PO SCH (08:39)
[2020-10-04] MEDS: POTASSIUM CHLORIDE 20MEQ TABLET SR PO SCH ×2 (08:39→16:21)
[2020-10-04] MEDS: CARVEDILOL 6.25 MG TABLET PO SCH ×2 (08:39→22:03)
[2020-10-04] MEDS: AMIODARONE HCL 200 MG TABLET PO SCH ×2 (08:39→22:02)
[2020-10-04] MEDS: SPIRONOLACTONE 25MG TABLET PO SCH (08:47)
[2020-10-04] MEDS: ALLOPURINOL 100 MG TABLET PO SCH (09:26)
[2020-10-04] MEDS ORDERED: POTASSIUM CHLORIDE 20MEQ TABLET SR PO NR (14:00)
[2020-10-05] VITALS (12 sets, daily range): BP systolic 90–155; BP diastolic 47–126
[2020-10-05] MEDS: FUROSEMIDE 100MG/10ML VIAL IVP SCH ×3 (05:59→21:26)
[2020-10-05] MEDS: IPRATROPIUM/ALBUTEROL 0.5-3(2.5)MG/3ML NEB HHN SCH ×2 (08:03→16:42)
[2020-10-05] MEDS: POTASSIUM CHLORIDE 20MEQ TABLET SR PO SCH ×2 (08:58→16:28)
[2020-10-05] MEDS: CARVEDILOL 6.25 MG TABLET PO SCH ×2 (08:59→21:25)
[2020-10-05] MEDS: SPIRONOLACTONE 25MG TABLET PO SCH (08:59)
[2020-10-05] MEDS: ALLOPURINOL 100 MG TABLET PO SCH (08:59)
[2020-10-05] MEDS: FAMOTIDINE 20MG TABLET PO SCH ×2 (08:59→21:23)
[2020-10-05] MEDS: ZINC SULFATE 220 MG ( 50 ) CAPSULE PO SCH (08:59)
[2020-10-05] MEDS: APIXABAN 5 MG TABLET PO SCH ×2 (08:59→16:28)
[2020-10-05] MEDS: CHOLECALCIFEROL (D3) 1000 UNIT TABLET PO SCH (09:00)
[2020-10-05] MEDS: ASCORBIC ACID 500 MG TABLET PO SCH ×2 (09:00→21:23)
[2020-10-05] MEDS: AMIODARONE HCL 200 MG TABLET PO SCH ×2 (09:00→21:26)
[2020-10-05 10:31] LABS: CHLORIDE 93 mEq/L (98-107)
[2020-10-05] MEDS: BUDESONIDE 0.5MG/2ML NEB HHN SCH (16:42)
[2020-10-06] VITALS (12 sets, daily range): BP systolic 99–150; BP diastolic 55–91
[2020-10-06] MEDS: FUROSEMIDE 100MG/10ML VIAL IVP SCH ×3 (05:10→21:11)
[2020-10-06 08:13] LABS: BASOPHILS % 0.6 % (0.0-2.0); HEMATOCRIT. 39.6 % (42.0-52.0); HEMOGLOBIN. 12.8 g/dL (14.0-18.0); LYMPHOCYTES % 13.3 % (20.0-50.0); MEAN CORPUSCULAR HEMOGLOBIN 27.8 pg (28.0-32.0); MEAN PLATELET VOLUME 7.8 fl (7.4-10.4); MONOCYTES % 10.7 % (2.0-8.0); NEUTROPHILS % 73.4 % (40.0-76.0); PLATELET 325 x1000/uL (130-400); RED BLOOD CELL COUNT 4.61 mill/uL (4.7-6.1); RED CELL DISTRIBUTION WIDTH 19.3 % (11.6-14.6)
[2020-10-06 08:16] LABS: CHLORIDE 96 mEq/L (98-107)
[2020-10-06] MEDS: BUDESONIDE 0.5MG/2ML NEB HHN SCH ×2 (08:57→15:56)
[2020-10-06] MEDS: IPRATROPIUM/ALBUTEROL 0.5-3(2.5)MG/3ML NEB HHN SCH ×2 (08:57→15:56)
[2020-10-06] MEDS: POTASSIUM CHLORIDE 20MEQ TABLET SR PO SCH ×2 (09:28→17:00)
[2020-10-06] MEDS: AMIODARONE HCL 200 MG TABLET PO SCH ×2 (09:29→21:11)
[2020-10-06] MEDS ORDERED: IOHEXOL-350 100 ML BOTTLE ONE (09:45)
[2020-10-06] MEDS ORDERED: POTASSIUM CHLORIDE 20MEQ/PACKET PO SCH (10:00)
[2020-10-06] MEDS ORDERED: KCL 20MEQ/100ML PREMIX 100 ML IV NR (12:00)
[2020-10-06 14:38] LABS: BG BASE EXCESS 13.3 mmol/L (-2.0-2.0); BG CARBOXYHEMOGLOBIN 1.3 % (0.5-1.5); BG DEOXYHEMOGLOBIN 5.5 % (0.0-5.0); BG FRACTION INSPIRED OXYGEN 32; BG METHEMOGLOBIN 0.3 % (0.0-1.5); BG OXYGEN SATURATION 94.4 % (92.0-98.5); BG OXYHEMOGLOBIN 92.9 % (94.0-97.0); BG PCO2 65.5 mmHg (35.0-45.0); BG PH 7.414 (7.350-7.450); BG PO2 74.4 mmHg (75.0-100.0); BG SAMPLE SITE RIGHT RADIAL; BG TOTAL HEMOGLOBIN 14.2 g/dL (12.0-18.0); BG VENT MODE NASAL CANNULA
[2020-10-06] MEDS: CHOLECALCIFEROL (D3) 1000 UNIT TABLET PO SCH (14:53)
[2020-10-06] MEDS: CARVEDILOL 6.25 MG TABLET PO SCH ×2 (14:54→21:13)
[2020-10-06] MEDS: ALLOPURINOL 100 MG TABLET PO SCH (14:55)
[2020-10-06] MEDS: APIXABAN 5 MG TABLET PO SCH ×2 (14:55→16:40)
[2020-10-06] MEDS: ASCORBIC ACID 500 MG TABLET PO SCH ×2 (14:55→21:13)
[2020-10-06] MEDS: FAMOTIDINE 20MG TABLET PO SCH ×2 (14:55→21:13)
[2020-10-06] MEDS: ZINC SULFATE 220 MG ( 50 ) CAPSULE PO SCH (16:40)
[2020-10-06] MEDS ORDERED: POTASSIUM CHLORIDE 20MEQ TABLET SR PO NR (18:30)
[2020-10-07] VITALS (12 sets, daily range): BP systolic 96–141; BP diastolic 54–85
[2020-10-07] MEDS: FUROSEMIDE 100MG/10ML VIAL IVP SCH ×3 (05:18→21:14)
[2020-10-07 07:54] LABS: BASOPHILS % 0.8 % (0.0-2.0); EOSINOPHILS % 2.5 % (0.0-5.0); HEMATOCRIT. 41.6 % (42.0-52.0); HEMOGLOBIN. 13.1 g/dL (14.0-18.0); LYMPHOCYTES % 12.3 % (20.0-50.0); MEAN CORPUSCULAR HEMOGLOBIN 27.5 pg (28.0-32.0); MEAN CORPUSCULAR VOLUME 87.5 fL (80.0-94.0); MEAN PLATELET VOLUME 7.6 fl (7.4-10.4); NEUTROPHILS % 74.4 % (40.0-76.0); PLATELET 309 x1000/uL (130-400); RED BLOOD CELL COUNT 4.75 mill/uL (4.7-6.1); RED CELL DISTRIBUTION WIDTH 19.6 % (11.6-14.6)
[2020-10-07 08:04] LABS: CHLORIDE 98 mEq/L (98-107)
[2020-10-07] MEDS ORDERED: PROPOFOL 200MG/20ML VIAL IV ONE (08:09)
[2020-10-07] MEDS ORDERED: GLYCOPYRROLATE 0.2 MG/ML 2ML VIAL ONE (08:11)
[2020-10-07] MEDS ORDERED: LIDOCAINE HCL/PF 1% 10 MG/ML 5ML VIAL ONE (08:11)
[2020-10-07] MEDS: BUDESONIDE 0.5MG/2ML NEB HHN SCH ×2 (08:23→21:42)
[2020-10-07] MEDS: IPRATROPIUM/ALBUTEROL 0.5-3(2.5)MG/3ML NEB HHN SCH ×2 (08:23→21:41)
[2020-10-07] MEDS ORDERED: ACETAMINOPHEN 325MG TABLET PO PRN (09:30)
[2020-10-07] MEDS: POTASSIUM CHLORIDE 20MEQ TABLET SR PO SCH ×2 (10:09→17:49)
[2020-10-07] MEDS: SPIRONOLACTONE 50MG TABLET PO SCH (10:09)
[2020-10-07] MEDS: CARVEDILOL 6.25 MG TABLET PO SCH ×2 (10:10→21:14)
[2020-10-07] MEDS: ZINC SULFATE 220 MG ( 50 ) CAPSULE PO SCH (10:10)
[2020-10-07] MEDS: AMIODARONE HCL 200 MG TABLET PO SCH ×2 (10:10→21:15)
[2020-10-07] MEDS: CHOLECALCIFEROL (D3) 1000 UNIT TABLET PO SCH (10:10)
[2020-10-07] MEDS: ASCORBIC ACID 500 MG TABLET PO SCH ×2 (10:10→21:14)
[2020-10-07] MEDS: APIXABAN 5 MG TABLET PO SCH ×2 (10:10→17:49)
[2020-10-07] MEDS: FAMOTIDINE 20MG TABLET PO SCH ×2 (10:11→21:14)
[2020-10-07] MEDS: ALLOPURINOL 100 MG TABLET PO SCH (10:11)
[2020-10-08] VITALS (9 sets, daily range): BP systolic 108–162; BP diastolic 49–93
[2020-10-08] MEDS: FUROSEMIDE 100MG/10ML VIAL IVP SCH (06:15)
[2020-10-08 07:47] LABS: BASOPHILS % 0.9 % (0.0-2.0); EOSINOPHILS % 2.1 % (0.0-5.0); HEMATOCRIT. 40.3 % (42.0-52.0); HEMOGLOBIN. 12.9 g/dL (14.0-18.0); LYMPHOCYTES % 14.7 % (20.0-50.0); MEAN CORPUSCULAR HEMOGLOBIN 28.1 pg (28.0-32.0); MEAN CORPUSCULAR VOLUME 87.8 fL (80.0-94.0); MEAN PLATELET VOLUME 7.7 fl (7.4-10.4); MONOCYTES % 9.7 % (2.0-8.0); NEUTROPHILS % 72.6 % (40.0-76.0); PLATELET 313 x1000/uL (130-400); RED BLOOD CELL COUNT 4.58 mill/uL (4.7-6.1); RED CELL DISTRIBUTION WIDTH 19.4 % (11.6-14.6)
[2020-10-08 07:55] LABS: CHLORIDE 97 mEq/L (98-107)
[2020-10-08] MEDS: POTASSIUM CHLORIDE 20MEQ TABLET SR PO SCH (08:29)
[2020-10-08] MEDS: AMIODARONE HCL 200 MG TABLET PO SCH (08:29)
[2020-10-08] MEDS: CHOLECALCIFEROL (D3) 1000 UNIT TABLET PO SCH (08:29)
[2020-10-08] MEDS: ASCORBIC ACID 500 MG TABLET PO SCH (08:30)
[2020-10-08] MEDS: FAMOTIDINE 20MG TABLET PO SCH (08:30)
[2020-10-08] MEDS: CARVEDILOL 6.25 MG TABLET PO SCH (08:30)
[2020-10-08] MEDS: ALLOPURINOL 100 MG TABLET PO SCH (08:30)
[2020-10-08] MEDS: ZINC SULFATE 220 MG ( 50 ) CAPSULE PO SCH (08:30)
[2020-10-08] MEDS: SPIRONOLACTONE 50MG TABLET PO SCH (08:30)
[2020-10-08] MEDS: APIXABAN 5 MG TABLET PO SCH (08:30)
[2020-10-08] MEDS ORDERED: FUROSEMIDE 40MG TABLET PO SCH (18:00)
== END 2020-10-08 16:05 | DRG 291 ==
LOC: ER 09:28 → 3WST 13:14 → EDBEDREQSVC 13:37 → ENRESERV 13:37 → EDBEDREQ 13:37 → EDBEDREQTM 13:37 → SUPCPDRO 14:01
PROVIDERS: ADMIT Internal Medicine; ATTEND Internal Medicine
PROC: 5A09357 Assistance with Respiratory Ventilation, Less than 24 Consecutive Hours, Continuous Positive Airway Pressure (ICD-10-PCS; 2020-10-01)
PROC: 02HV33Z Insertion of Infusion Device into Superior Vena Cava, Percutaneous Approach (ICD-10-PCS; 2020-10-02)
PROC: B548ZZA Ultrasonography of Superior Vena Cava, Guidance (ICD-10-PCS; 2020-10-02)
PROC: 5A09357 Assistance with Respiratory Ventilation, Less than 24 Consecutive Hours, Continuous Positive Airway Pressure (ICD-10-PCS; 2020-10-03)
PROC: 5A09357 Assistance with Respiratory Ventilation, Less than 24 Consecutive Hours, Continuous Positive Airway Pressure (ICD-10-PCS; 2020-10-04)
PROC: 5A09357 Assistance with Respiratory Ventilation, Less than 24 Consecutive Hours, Continuous Positive Airway Pressure (ICD-10-PCS; 2020-10-06)
PROC: 5A2204Z Restoration of Cardiac Rhythm, Single (ICD-10-PCS; principal; 2020-10-07)
PROC: 4A0234Z Measurement of Cardiac Electrical Activity, Percutaneous Approach (ICD-10-PCS; 2020-10-07)
PROC: 5A09357 Assistance with Respiratory Ventilation, Less than 24 Consecutive Hours, Continuous Positive Airway Pressure (ICD-10-PCS; 2020-10-07)
DX: I13.0 Hypertensive heart and chronic kidney disease with heart failure and stage 1 through stage 4 chronic kidney disease, or unspecified chronic kidney disease (principal); I49.01 Ventricular fibrillation; J96.22 Acute and chronic respiratory failure with hypercapnia; E43 Unspecified severe protein-calorie malnutrition; J96.21 Acute and chronic respiratory failure with hypoxia; I50.43 Acute on chronic combined systolic (congestive) and diastolic (congestive) heart failure; E66.2 Morbid (severe) obesity with alveolar hypoventilation; E87.1 Hypo-osmolality and hyponatremia; Z68.42 Body mass index [BMI] 45.0-49.9, adult; L03.115 Cellulitis of right lower limb; I48.21 Permanent atrial fibrillation; E87.4 Mixed disorder of acid-base balance; I47.2 Ventricular tachycardia; I48.4 Atypical atrial flutter; I74.5 Embolism and thrombosis of iliac artery; L97.909 Non-pressure chronic ulcer of unspecified part of unspecified lower leg with unspecified severity; E87.6 Hypokalemia; N18.9 Chronic kidney disease, unspecified; E78.5 Hyperlipidemia, unspecified; I45.10 Unspecified right bundle-branch block; J44.9 Chronic obstructive pulmonary disease, unspecified; N44.8 Other noninflammatory disorders of the testis; G62.9 Polyneuropathy, unspecified; I27.20 Pulmonary hypertension, unspecified; I42.0 Dilated cardiomyopathy; I34.0 Nonrheumatic mitral (valve) insufficiency; I50.82 Biventricular heart failure; Z20.822 Contact with and (suspected) exposure to COVID-19; I73.9 Peripheral vascular disease, unspecified; I83.93 Asymptomatic varicose veins of bilateral lower extremities; I87.8 Other specified disorders of veins; R32 Unspecified urinary incontinence; T50.2X5A Adverse effect of carbonic-anhydrase inhibitors, benzothiadiazides and other diuretics, initial encounter; Z87.891 Personal history of nicotine dependence; Z95.810 Presence of automatic (implantable) cardiac defibrillator; Y92.89 Other specified places as the place of occurrence of the external cause; Z79.01 Long term (current) use of anticoagulants; Z79.899 Other long term (current) drug therapy; Z82.49 Family history of ischemic heart disease and other diseases of the circulatory system; Z83.3 Family history of diabetes mellitus; Z87.11 Personal history of peptic ulcer disease
CPT/HCPCS: 36415; 36600; 71045; 75572; 76937; 80048; 80053; 80320; 82375; 82550; 82553; 82607; 82746; 82805; 83540; 83550; 83735; 83880; 84100; 84132; 84145; 84484; 85025; 87426; 92961; 93005; 93923; 93970; 94640; 94660; 97116; 97162; 97166; 97530; 99291; A6261; C1725; J0282; J1120; J1250; J1885; J1940; J2704; J3480; J3490; J7040; J7060; J7626; Q9967; G0480

== ENCOUNTER 2020-10-08 16:09 | Inpatient (IN) | payer MEDICARE, MEDICAID ==
[~2020-10-08] VITALS: Ht 172.7 cm; Wt 143.3 kg
[2020-10-08 16:30] VITALS: BP 109/62
[2020-10-08] MEDS ORDERED: NITROGLYCERIN 0.4MG TABLET SL SL PRN (18:30)
[2020-10-08] MEDS ORDERED: IPRATROPIUM/ALBUTEROL 0.5-3(2.5)MG/3ML NEB HHN PRN (18:30)
[2020-10-08] MEDS ORDERED: ACETAMINOPHEN 325MG TABLET PO PRN ×2 (18:30)
[2020-10-08] MEDS ORDERED: ONDANSETRON 4MG ODT PO PRN (18:30)
[2020-10-08] MEDS ORDERED: GUAIFENESIN 200MG/10ML SUGAR FREE UDC PO PRN (18:30)
[2020-10-08] MEDS ORDERED: MAGNESIUM/ALUMINUM HYDROXIDE/SIMETHICONE 30ML UDC PO PRN (18:30)
[2020-10-08] MEDS ORDERED: CLONIDINE 0.1MG TABLET PO PRN (18:30)
[2020-10-08 20:24] VITALS: BP 109/62
[2020-10-08] MEDS ORDERED: FUROSEMIDE 40MG TABLET PO SCH (21:00)
[2020-10-08] MEDS: ASCORBIC ACID 500 MG TABLET PO SCH (21:51)
[2020-10-08] MEDS: FAMOTIDINE 20MG TABLET PO SCH (21:51)
[2020-10-08] MEDS: AMIODARONE HCL 200 MG TABLET PO SCH (21:52)
[2020-10-08] MEDS: CARVEDILOL 6.25 MG TABLET PO SCH (21:52)
[2020-10-08 21:53] VITALS: BP 114/72
[2020-10-09] MEDS: BUDESONIDE 0.5MG/2ML NEB HHN SCH (07:58)
[2020-10-09 08:00] VITALS: BP 107/65
[2020-10-09 08:18] LABS: BASOPHILS % 0.9 % (0.0-2.0); EOSINOPHILS % 1.2 % (0.0-5.0); HEMATOCRIT. 37.3 % (42.0-52.0); HEMOGLOBIN. 12.1 g/dL (14.0-18.0); MEAN CORPUSCULAR HEMOGLOBIN 28.1 pg (28.0-32.0); MEAN CORPUSCULAR VOLUME 86.9 fL (80.0-94.0); MEAN PLATELET VOLUME 7.4 fl (7.4-10.4); MONOCYTES % 8.1 % (2.0-8.0); NEUTROPHILS % 76.8 % (40.0-76.0); PLATELET 280 x1000/uL (130-400); RED BLOOD CELL COUNT 4.29 mill/uL (4.7-6.1); RED CELL DISTRIBUTION WIDTH 19.6 % (11.6-14.6)
[2020-10-09 08:54] LABS: CHLORIDE 97 mEq/L (98-107)
[2020-10-09] MEDS ORDERED: POTASSIUM CHLORIDE 20MEQ TABLET SR PO SCH (09:00)
[2020-10-09] MEDS ORDERED: IPRATROPIUM/ALBUTEROL 0.5-3(2.5)MG/3ML NEB HHN SCH (09:00)
[2020-10-09] MEDS ORDERED: DOCUSATE SODIUM 100MG CAPSULE PO SCH (09:00)
[2020-10-09 09:03] LABS: TOTAL IRON BINDING CAPACITY 315 ug/dL (250-450)
[2020-10-09] MEDS: SPIRONOLACTONE 50MG TABLET PO SCH (10:47)
[2020-10-09] MEDS: ASCORBIC ACID 500 MG TABLET PO SCH ×2 (10:47→20:50)
[2020-10-09] MEDS: AMIODARONE HCL 200 MG TABLET PO SCH ×2 (10:47→20:49)
[2020-10-09] MEDS: ZINC SULFATE 220 MG ( 50 ) CAPSULE PO SCH (10:47)
[2020-10-09] MEDS: CARVEDILOL 6.25 MG TABLET PO SCH ×2 (10:48→20:54)
[2020-10-09] MEDS: CHOLECALCIFEROL (D3) 1000 UNIT TABLET PO SCH (10:48)
[2020-10-09] MEDS: APIXABAN 5 MG TABLET PO SCH ×2 (10:48→18:43)
[2020-10-09] MEDS: POTASSIUM CHLORIDE 20MEQ TABLET SR PO SCH ×2 (10:50→18:44)
[2020-10-09] MEDS: FAMOTIDINE 20MG TABLET PO SCH ×2 (10:50→22:26)
[2020-10-09] MEDS: FUROSEMIDE 40MG TABLET PO SCH ×2 (10:51→20:50)
[2020-10-09] MEDS: ALLOPURINOL 100 MG TABLET PO SCH (10:59)
[2020-10-09] MEDS: IPRATROPIUM/ALBUTEROL 0.5-3(2.5)MG/3ML NEB HHN SCH (20:26)
[2020-10-09 20:36] VITALS: BP 108/44
[2020-10-10] MEDS: BUDESONIDE 0.5MG/2ML NEB HHN SCH (07:17)
[2020-10-10] MEDS: IPRATROPIUM/ALBUTEROL 0.5-3(2.5)MG/3ML NEB HHN SCH (07:17)
[2020-10-10 08:00] VITALS: BP 96/54
[2020-10-10] MEDS ORDERED: DOCUSATE SODIUM 100MG CAPSULE PO PRN (09:00)
[2020-10-10] MEDS: FAMOTIDINE 20MG TABLET PO SCH (09:53)
[2020-10-10] MEDS: POTASSIUM CHLORIDE 20MEQ TABLET SR PO SCH (09:53)
[2020-10-10] MEDS: ASCORBIC ACID 500 MG TABLET PO SCH (09:53)
[2020-10-10] MEDS: ALLOPURINOL 100 MG TABLET PO SCH (09:54)
[2020-10-10] MEDS: CHOLECALCIFEROL (D3) 1000 UNIT TABLET PO SCH (09:54)
[2020-10-10] MEDS: APIXABAN 5 MG TABLET PO SCH (09:55)
[2020-10-10] MEDS: FUROSEMIDE 40MG TABLET PO SCH (09:56)
[2020-10-10] MEDS: ZINC SULFATE 220 MG ( 50 ) CAPSULE PO SCH (09:56)
[2020-10-10] MEDS: AMIODARONE HCL 200 MG TABLET PO SCH ×2 (10:06→11:16)
[2020-10-10] MEDS: CARVEDILOL 6.25 MG TABLET PO SCH ×2 (10:06→11:17)
[2020-10-10] MEDS: SPIRONOLACTONE 50MG TABLET PO SCH ×2 (10:06→11:16)
[2020-10-13 19:06] LABS: 25-HYDROXY VITAMIN D3 14 ng/mL (.)
== END 2020-10-10 16:15 | disposition left against medical advice (07) | DRG 947 ==
PROVIDERS: ADMIT Physical Medicine & Rehabilitation Spinal Cord Injury Medicine; ATTEND Internal Medicine
PROC: 5A09357 Assistance with Respiratory Ventilation, Less than 24 Consecutive Hours, Continuous Positive Airway Pressure (ICD-10-PCS; principal; 2020-10-08)
PROC: 5A09357 Assistance with Respiratory Ventilation, Less than 24 Consecutive Hours, Continuous Positive Airway Pressure (ICD-10-PCS; 2020-10-09)
DX: R53.81 Other malaise (principal); I50.43 Acute on chronic combined systolic (congestive) and diastolic (congestive) heart failure; I49.01 Ventricular fibrillation; J96.21 Acute and chronic respiratory failure with hypoxia; J96.22 Acute and chronic respiratory failure with hypercapnia; E43 Unspecified severe protein-calorie malnutrition; I13.0 Hypertensive heart and chronic kidney disease with heart failure and stage 1 through stage 4 chronic kidney disease, or unspecified chronic kidney disease; I47.2 Ventricular tachycardia; I48.20 Chronic atrial fibrillation, unspecified; I74.5 Embolism and thrombosis of iliac artery; L97.909 Non-pressure chronic ulcer of unspecified part of unspecified lower leg with unspecified severity; E66.2 Morbid (severe) obesity with alveolar hypoventilation; Z68.42 Body mass index [BMI] 45.0-49.9, adult; E87.1 Hypo-osmolality and hyponatremia; I42.0 Dilated cardiomyopathy; I34.0 Nonrheumatic mitral (valve) insufficiency; I45.10 Unspecified right bundle-branch block; I50.82 Biventricular heart failure; I83.009 Varicose veins of unspecified lower extremity with ulcer of unspecified site; I87.8 Other specified disorders of veins; R32 Unspecified urinary incontinence; N44.8 Other noninflammatory disorders of the testis; N18.9 Chronic kidney disease, unspecified; G62.9 Polyneuropathy, unspecified; R26.2 Difficulty in walking, not elsewhere classified; E87.6 Hypokalemia; Z95.810 Presence of automatic (implantable) cardiac defibrillator; Z79.01 Long term (current) use of anticoagulants; Z82.49 Family history of ischemic heart disease and other diseases of the circulatory system; Z83.3 Family history of diabetes mellitus; Z87.891 Personal history of nicotine dependence
CPT/HCPCS: 36415; 80053; 82306; 82728; 83540; 83550; 84134; 84443; 85025; 93970; 94640; 94660; 97110; 97116; 97162; 97166; 97530; 97535; J7626; Q0162

== ENCOUNTER → 2021-12-30 | Day surgery (SDC) | payer MEDICARE, MEDICAID ==
[~2021-12-30] MED LIST changes: +AMI2 PO; +ATROPINE SULFATE 1MG/10ML SYR ONE; +LIDOCAINE 2% JELLY PREFILLED SYRINGE MM ONE; +POTA-203 PO; -POTA-9 PO; +TETRACAINE/BENZOCAINE/BUTAMBEN 20 GM SPRAY MM ONE
== END | disposition home or self-care (01) ==
LOC: EDSTATUS 06:15 → CCL 06:17
PROVIDERS: ATTEND Specialist
DX: I48.91 Unspecified atrial fibrillation (principal); Z53.8 Procedure and treatment not carried out for other reasons; I42.8 Other cardiomyopathies; I50.22 Chronic systolic (congestive) heart failure; Z79.01 Long term (current) use of anticoagulants; Z88.6 Allergy status to analgesic agent; Z95.810 Presence of automatic (implantable) cardiac defibrillator
CPT/HCPCS: J0461

== ENCOUNTER → 2022-01-14 | Day surgery (SDC) | payer MEDICARE, MEDICAID ==
[~2022-01-14] VITALS: Ht 175.3 cm; Wt 154.2 kg
[~2022-01-14] MED LIST changes: +ACETAMINOPHEN 325MG TABLET PO PRN; +ATROPINE SULFATE 1MG/10ML SYR IV PRN; -ATROPINE SULFATE 1MG/10ML SYR ONE; +COLC0.6C3 MT; +FENTANYL CITRATE/PF 50MCG/ML 2ML VIAL ONE; -METO-396 PO; +MIDAZOLAM HCL 5 MG/5 ML VIAL ONE; -MIDO5TAB4 PO; +ONDANSETRON HCL 4MG/2ML INJ IV PRN; -POTA-203 PO; +POTA-79 PO; +VIAG50 PO
== END | disposition home or self-care (01) ==
LOC: CCL 06:22
PROVIDERS: ATTEND Specialist
DX: I48.91 Unspecified atrial fibrillation (principal); I34.0 Nonrheumatic mitral (valve) insufficiency; E03.9 Hypothyroidism, unspecified; G47.33 Obstructive sleep apnea (adult) (pediatric); I11.0 Hypertensive heart disease with heart failure; I50.9 Heart failure, unspecified; Z79.01 Long term (current) use of anticoagulants; Z79.899 Other long term (current) drug therapy; Z98.890 Other specified postprocedural states; Z88.6 Allergy status to analgesic agent
CPT/HCPCS: 92960; 93005; 93312; J2250; J3010; 99152; G0500

== ENCOUNTER → 2023-10-07 | Day surgery (SDC) | payer MEDICARE, MEDICAID ==
[~2023-10-07] MED LIST changes: -ACETAMINOPHEN 325MG TABLET PO PRN; +ALLO300T2 PO; +AMIO100T4 PO; -ATROPINE SULFATE 1MG/10ML SYR IV PRN; +CARV6.2548 PO; +DIGO250T79 PO; +FURO40TA5 PO; +HEPARIN 1000 UNITS/ML 10ML ONE; +IODIXANOL 320 MG/ML 150ML BOTTLE IV ONE; -LIDOCAINE 2% JELLY PREFILLED SYRINGE MM ONE; +LIDOCAINE HCL 1% 20ML VIAL ONE; +LISI2.5T47 PO; +MULT-622 PO; -ONDANSETRON HCL 4MG/2ML INJ IV PRN; +POTA-202 PO; +POTA-354 PO; -POTA-79 PO; +POTA-81 PO; +SODIUM CHLORIDE 0.45% 500 ML IV ONE; -TETRACAINE/BENZOCAINE/BUTAMBEN 20 GM SPRAY MM ONE
== END | disposition home or self-care (01) ==
LOC: CCL 10:33
PROVIDERS: ATTEND Specialist
DX: I48.91 Unspecified atrial fibrillation (principal); Z53.8 Procedure and treatment not carried out for other reasons; E78.5 Hyperlipidemia, unspecified; I13.0 Hypertensive heart and chronic kidney disease with heart failure and stage 1 through stage 4 chronic kidney disease, or unspecified chronic kidney disease; I50.9 Heart failure, unspecified; N18.9 Chronic kidney disease, unspecified; G47.33 Obstructive sleep apnea (adult) (pediatric); E66.9 Obesity, unspecified; M17.0 Bilateral primary osteoarthritis of knee; Z79.899 Other long term (current) drug therapy; Z98.890 Other specified postprocedural states; Z88.8 Allergy status to other drugs, medicaments and biological substances
CPT/HCPCS: 82962; J3010; J1644 ×2; J3490; J2250; Q9967